=== PATIENT | female | born 1990 | race Two or more races ===

== ENCOUNTER 2021-05-14 06:06 | Emergency (ER) | payer OTHER ==
[~2021-05-14] VITALS: Ht 162.6 cm; Wt 61.2 kg
[2021-05-14] MEDS ORDERED: ORASEP SPRAY30 ML MM (06:58)
[2021-05-14] MEDS ORDERED: AMOX-CLAV 875-1 EACH PO (06:58)
== END 2021-05-14 07:18 ==
LOC: ER 06:06
DX: J03.80 Acute tonsillitis due to other specified organisms (principal); B96.89 Other specified bacterial agents as the cause of diseases classified elsewhere

== ENCOUNTER → 2024-02-25 | Day surgery (SDC) | payer OTHER ==
[~2024-02-25] MED LIST: AMOX-CLAV 875-1 EACH PO; MEPERIDINE HCL/PF 50 MG/ML VIAL IM PRN; MORPHINE SULFATE 4 MG/ML VIAL IV ONE; ORASEP SPRAY30 ML MM; POVIDONE-IODINE 118 ML BOTT TOP ONE; PROMETHAZINE HCL 50 MG/ML AMPUL IM PRN
== END | disposition home or self-care (01) ==
LOC: CIR.AMB 06:11
PROVIDERS: ATTEND Obstetrics & Gynecology
DX: D06.9 Carcinoma in situ of cervix, unspecified (principal)

== ENCOUNTER 2025-04-02 18:28 | Emergency (ER) | payer OTHER ==
[~2025-04-02] VITALS: Ht 162.6 cm; Wt 64.4 kg
[~2025-04-02 18:28] MED LIST changes: -MEPERIDINE HCL/PF 50 MG/ML VIAL IM PRN; -MORPHINE SULFATE 4 MG/ML VIAL IV ONE; -POVIDONE-IODINE 118 ML BOTT TOP ONE; -PROMETHAZINE HCL 50 MG/ML AMPUL IM PRN
[2025-04-02] MEDS ORDERED: AMOX-CLAV 875-1 EACH PO (20:07)
[2025-04-02] MEDS ORDERED: IBUPROFEN600 MG PO (20:07)
[2025-04-02] MEDS ORDERED: KETOROLAC TROMETHAMINE 60 MG VIAL IM ONE ×2 (20:15→20:24)
[2025-04-02] MEDS ORDERED: CEFTRIAXONE SODIUM 1,000 MG VIAL IM ONE (20:15)
[2025-04-02] MEDS ORDERED: CEFTRIAXONE SODIUM 1,000 MG VIAL ONE (20:25)
== END 2025-04-02 20:54 | disposition home or self-care (01) ==
LOC: ER 18:28
DX: L05.01 Pilonidal cyst with abscess (principal)